=== PATIENT | male | born 1945 | race Caucasian/White ===

== ENCOUNTER 2016-10-21 06:35 | Day surgery (SDC) ==
[2016-10-21] MEDS ORDERED: LIDOCAINE 1% 20 ML MDV ONE (07:16)
[2016-10-21] MEDS ORDERED: LIDOCAINE 1% 20 ML MDV ID ONE (07:16)
[2016-10-21] MEDS ORDERED: VERSED ONE (08:25)
[2016-10-21] MEDS ORDERED: DIPRIVAN 20 ML VIAL IVP ONE (08:25)
[2016-10-21] MEDS ORDERED: SUBLIMAZE ONE (08:25)
[2016-10-21 09:46] VITALS: TEMP 98
[2016-10-21 09:47] VITALS: BP 124/66
--- NOTE | 2016-10-22 09:03 | OP ---
PROCEDURE: COLONOSCOPY to the anastomosis. ENDOSCOPIST: Edson ROBERTS M.D. INDICATION: History of adenomatous polyps status post right colectomy. INSTRUMENT: [facility]190. MEDICATION: PER ANESTHESIA. PROCEDURE: The patient was positioned for colonoscopy. The digital rectal exam was negative. The colonoscope was inserted through the anus and advanced to the anastomosis. The patient undergone a right colectomy. Careful inspection made of the colonic segment. The scope is withdrawn in a circumferential fashion. Care was taken to inspect the proximal side of the haustral folds and rectal valves. Retroflex exam was normal. The patient tolerated the procedure without immediate complication. Withdrawal time 4 minutes and 26 seconds. PLAN: 1. Suggest repeat Colonoscopy in three years CC: Ara ADDENDUM: There were no photographs obtained because of equipment malfunction. IRWIN
== END 2016-10-21 10:05 | disposition home or self-care (01) ==
LOC: SURG 06:35
PROVIDERS: ATTEND Internal Medicine Gastroenterology
DX: Z86.010 Personal history of colon polyps (principal); Z90.49 Acquired absence of other specified parts of digestive tract; E11.9 Type 2 diabetes mellitus without complications

== ENCOUNTER 2017-07-25 10:15 | Outpatient (CLI) ==
--- NOTE | 2017-07-25 10:51 | DI ---
EXAM: Two views of the right hip. History: Right hip pain. Findings: No acute fracture or dislocation. Right hip joint space is preserved. No radiopaque fore ign bodies. Impression: No acute osseous abnormality and no significant degenerative changes of the right hip
--- NOTE | 2017-07-25 10:52 | DI ---
EXAM: Two views of the left hip. History: Left hip pain. Findings: No acute fracture or dislocation. Left hip joint space is relatively preserved. Surgical clips seen within the pelvis. Impression: No acute osseous abnormality and no significant degenerative joint disease of the left h ip.
--- NOTE | 2017-07-25 12:06 | DI ---
EXAM: Five views of the lumbar spine HISTORY: Lower back pain. COMPARISON: None FINDINGS: The vertebral bodies demonstrate multilevel disc space narrowing with anterior and posterio r disc osteophytes. There is scattered facet arthropathy with narrowing of the neural foramen at L4- L5 and L5-S1. There is mild wedge deformity at L1. This is age indeterminate. There is no signific ant subluxation. Lumbosacral junction is intact. The soft tissues demonstrate surgical changes in t he upper abdomen and in the pelvis. IMPRESSION: 1. Age indeterminate compression deformity at L1 with minimal height loss. 2. Multilevel disc space narrowing with anterior posterior disc osteophytes and facet arthropathy wi th neural foraminal narrowing at L4-L5 and L5-S1.
== END 2017-07-25 10:16 | disposition home or self-care (01) ==
LOC: RAD 10:15
PROVIDERS: ATTEND Family Medicine
DX: M25.551 Pain in right hip (principal); M25.552 Pain in left hip; M54.5 Low back pain

== ENCOUNTER 2019-03-05 18:03 | Emergency (ER) | payer OTHER ==
[2019-03-05 18:14] VITALS: BP 111/69; TEMP 96.9; BMI 41.3
--- NOTE | 2019-03-05 18:33 | ED.PDOC ---
General ED Provider: Dr. KASI COCHRAN Chief Complaint: Fall Stated Complaint: fall pelvis pain LEFT sided at the right ant sup illiac wing and low back pain no head or neck injury denied L.O.C Time Seen by Physician: 18:00 Mode of Arrival: Wheelchair Information Source: Patient, Family Exam Limitations: No limitations Primary Care Provider: TACHO PEARSON Nursing and Triage Documentation Reviewed and Agree: Yes Does patient meet sepsis criteria?: No System Inflammatory Response Syndrome: Not Applicable Sepsis Protocol: For patient's 13 years and over: Temp is 96.8 and below OR 101 and greater Pulse >90 BPM Resp >20/minute Acutely Altered Mental Status Are patient's symptoms suggestive of a new infection, such as: -Pneumonia -Skin, Soft Tissue -Endocarditis -UTI -Bone, Joint Infection -Implantable Device -Acute Abdominal Infection -Wound Infection -Meningitis -Blood Stream Catheter Infection -Unknown Trauma/Injury Complaint Exam - Trauma Complaint/Exam Location of Pain or Injury: Reports: Other (hip pain left) Mechanism of Injury: Reports: Fall Onset/Duration: on the day of presentation Symptoms Are: Still present Timing of Treatment: Immediate Initial Severity: Mild Current Severity: Mild Character: Reports: Aching Aggravating: Reports: Movement Alleviating: Reports: Rest Associated Signs and Symptoms: Denies: LOC, Confusion, Memory loss, Lethargy, Vomiting, Bleeding, Bruising, Swelling, Extremity disuse, Painful respiration, Hoarseness, Dysphagia, Hemoptysis, Significant blood loss Penetrating Injury Risk Factors: Reports: None Nexus Low Risk Criteria: No post-midline CS tender, No evidence of intoxicat., No Altered LOC, No focal neuro deficit, No distracting injuries Glascow Coma Scale (see protocol): 15 Trauma Findings: Present: Pelvic tenderness (left hip). Absent: [place] eyes, Hemotympanum, Nasal deformity, Dental tenderness, Dental injury, Neck tenderness , Neck spasm, Crepitus, Airway obstructed, Trachea displaced, Labored respirations, Decreased breath sounds, Muffled heart sounds, Weak pulses, Absent pulses, Abdominal distention, Pelvic instability Differential Diagnoses: Fracture, Sprain, Strain Review of Systems - Review Of Systems Constitutional: Reports: No symptoms Eyes: Reports: No symptoms Ears, Nose, Mouth, Throat: Reports: No symptoms Respiratory: Reports: No symptoms Cardiac: Reports: No symptoms GI: Reports: No symptoms : Reports: No symptoms Musculoskeletal: Reports: Back pain, Joint pain (LEFT HIP) Skin: Reports: No symptoms Neurological: Reports: No symptoms Endocrine: Reports: No symptoms Hematologic/Lymphatic: Reports: No symptoms All Other Systems: Reviewed and Negative Past Medical History - Past Medical History Previously Healthy: Yes Endocrine: Reports: None Cardiovascular: Reports: None Respiratory: Reports: None Hematological: Reports: None Gastrointestinal: Reports: None Genitourinary: Reports: None Neuro/Psych: Reports: None Musculoskeletal: Reports: None Cancer: Reports: None - Surgical History General Surgical History: Reports: None - Family History Family History: Reports: None - Social History Smoking Status: Current every day smoker Hx Substance Use: No Alcohol Screening: None Physical Exam - Physical Exam Appearance: Well-appearing, No pain distress, Well-nourished Eyes: TI, EOMI, Conjunctiva clear ENT: Ears normal, Nose normal, Oropharynx normal Respiratory: Airway patent, Breath sounds clear, Breath sounds equal, Respirations nonlabored Cardiovascular: RRR, Pulses normal, No rub, No murmur GI/: Soft, Nontender, No masses, Bowel sounds normal, No Organomegaly Musculoskeletal: Normal strength (back pain lubar region l2 ), ROM intact, No edema, No calf tenderness Skin: Warm, Dry, Normal color Neurological: Sensation intact, Motor intact, Reflexes intact, Cranial nerves intact, Alert, Oriented Psychiatric: Affect appropriate, Mood appropriate Interpretation - Radiology Interpretation Radiology Interpretation By: Radiologist Radiology Results: No acute changes (l1,l2 transverse fx) Critical Care Note - Critical Care Note Total Time (mins): 0 Course - Course Orders, Labs, Meds: Orders Category Date Time Status Hydrocodone Bit/Acetaminophen [[place] 10-325] MEDS 03/05/19 19:34 Discontinued 1 tab PO ONCE STA CT LUMBAR SPINE W/O CONTRAST Stat RADS 03/05/19 18:[address] PELVIS W/O CONTRAST Stat RADS 03/05/19 18:28 Completed Medications Discontinued Medications Generic Name Dose Route Start Last Admin Trade Name Freq PRN Reason Stop Dose Admin Hydrocodone Bitart/Acetaminophen 1 tab 03/05/19 19:34 03/05/19 19:41 [place] 10-325 PO 03/05/19 19:35 1 tab ONCE STA Administration Vital Signs: Temp Pulse Resp BP Pulse Ox 03/05/19 18:04 96.9 F L 72 20 111/69 91 L Departure - Departure Time of Disposition: 20:00 (films were signed out to replacement ) Disposition: HOME SELF-CARE Discharge Problem: Hip sprain Qualifiers: Encounter type: initial encounter Laterality: left Qualified Code(s): S73.102A - Unspecified sprain of left hip, initial encounter Lumbar transverse process fracture Qualifiers: Encounter type: initial encounter Fracture type: closed Qualified Code(s): S32.009A - Unspecified fracture of unspecified lumbar vertebra, initial encounter for closed fracture Instructions: Hip Sprain (ED) Condition: Good Pt referred to PMD for follow-up: Yes IPMP verified?: No Additional Instructions: Please call your Family Physician as soon as possible to schedule a follow-up appointment. Prescriptions: Hydrocodone Bit/Acetaminophen [[place] 10-325] 1 each PO Q6HR #14 tablet Allergies/Adverse Reactions: Allergies No Known Allergies Allergy (Verified 03/05/19 18:11) Home Medications: Ambulatory Orders Aspirin [Adult Low Dose Aspirin EC] 81 mg PO DAILY 10/21/16 Cholecalciferol (Vitamin D3) [Vitamin D] 50,000 unit PO WEEKLY 10/21/16 Furosemide 40 mg PO DAILY 10/21/16 Insulin Glargine,Hum.rec.anlog [Lantus] 100 unit SUBCUT BEDTIME 10/21/16 Nebivolol HCl [Bystolic] 10 mg PO BID 10/21/16 Nifedipine [Nifedical Xl] 1 tab PO DAILY 10/21/16 Olmesartan/Hydrochlorothiazide [Benicar Hct 40-12.5 mg Tablet] 1 each PO DAILY 10/21/16 Pravastatin Sodium 80 mg PO BEDTIME 10/21/16 Ranolazine [Ranexa] 500 mg PO BID 10/21/16 Sucralfate 1 gm PO QID 10/21/16 Hydrocodone Bit/Acetaminophen [[place] 10-325] 1 each PO Q6HR #14 tablet 03/05/19 Insulin Lispro [Humalog] 10 unit SUBCUT TIDWM 03/05/19 Olmesartan/Hydrochlorothiazide [Benicar Hct 40-12.5 mg Tablet] 1 each PO DAILY 03/05/19 Disposition Discussed With: Patient
--- NOTE | 2019-03-05 19:33 | CT ---
EXAM: CT pelvis HISTORY: Pain after fall. TECHNIQUE: CT pelvis without contrast. Multiplanar images provided. FINDINGS: No comparison. There is no fracture or joint dislocation. Moderate osteoarthritis of the hips. Moderately severe a rthropathy of the sacroiliac joints and the lower spine. See also same day CT lumbar spine report. There is a partially imaged intra-abdominal 4.3 x 7.4 cm fatty mass deep to the general level of the umbilicus which is of indeterminate etiology and clinical significance. No ventral hernia is seen wi thin the field of view. There is no ascites or evidence of bowel obstruction. Atherosclerotic disea se is noted. IMPRESSION: 1. No fracture or dislocation. Degenerative joint disease.
[2019-03-05] MEDS ORDERED: NORCO 10-325 PO STA (19:34)
--- NOTE | 2019-03-05 19:37 | CT ---
EXAM: CT of the lumbar spine without IV contrast. HISTORY: Fall. COMPARISON: None available at the time of dictation. TECHNIQUE: Noncontrast CT of the lumbar spine was performed with axial , sagittal and coronal recon structions were performed and reviewed. FINDINGS: Lumbar spine: There are acute fractures seen involving the left L2 transverse process and left L1 transverse proces s. Lateral lumbar spinal alignment on the sagital reconstructions appears normal without significant lis thesis. AP spinal alignment on the coronal reconstructions appears normal. Limited evaluation of th e paravertebral soft tissues in the region of the lumbar spine is without paravertebral masses, acute hematomas idenitied. There is preservation of the normal vertebral body heights without evidence of compression deformity identified. L1-2:There is moderate intervertebral disc height loss suggesting degenerative disc disease. There i s minimal central canal narrowing due to disc bulge. The bilateral bony neural foramen appear patent L2-3:There is moderate to severe intervertebral disc height loss suggesting degenerative disc disease . There is moderate central canal narrowing due to a posterior disc osteophyte complex. There is mi nimal bilateral neural foraminal narrowing due to disc bulge L3-4:There is severe intervertebral disc height loss suggesting degenerative disc disease. There is moderate central canal narrowing due to disc bulge. There is moderate bilateral neural foraminal jacqueline rowing due to disc bulge L4-5:There is moderate to severe intervertebral disc height loss suggesting degenerative disc disease . There is moderate appearing central canal narrowing due to disc bulge. There is moderate bilatera l neural foraminal narrowing due to disc bulge L5-S1:There is mild intervertebral disc height loss suggesting degenerative disc disease. There is m inimal central canal narrowing due to disc bulge. There is mild bilateral neural foraminal narrowing due to disc bulge. IMPRESSION: 1. Acute fractures of the left L1 and L2 transverse processes. 2. Degenerative changes with elements of central canal and neural foraminal narrowing as detailed at the lumbar spine.
== END 2019-03-05 19:50 | disposition home or self-care (01) ==
LOC: ED 18:03
DX: S32.019A Unspecified fracture of first lumbar vertebra, initial encounter for closed fracture (principal); S32.029A Unspecified fracture of second lumbar vertebra, initial encounter for closed fracture; S73.102A Unspecified sprain of left hip, initial encounter; W19.XXXA Unspecified fall, initial encounter; F17.210 Nicotine dependence, cigarettes, uncomplicated
CPT/HCPCS: 99283